=== PATIENT | female | born 1955 | race Caucasian/White ===

== ENCOUNTER 2016-12-05 11:57 | Inpatient (IN) | payer MEDICARE, OTHER ==
[~2016-12-05] VITALS: Ht 154.9 cm; Wt 66.5 kg
[2016-12-05] MEDS: INSULIN ASPART [NOVOLOG] 3 ML PEN SC SCH (00:15)
[2016-12-05] MEDS ORDERED: ASPIRIN 325 MG TAB PO STA (12:42)
[2016-12-05] MEDS ORDERED: ONDANSETRON 4 MG INJ IV STA (12:42)
[2016-12-05] MEDS ORDERED: NITROGLYCERIN 2% 1 GM OINT PKT TD STA (12:42)
[2016-12-05] MEDS ORDERED: GLIP5TAB13 PO (12:54)
[2016-12-05] MEDS ORDERED: CARV25TA79 PO (12:54)
[2016-12-05] MEDS ORDERED: DIGO125T PO (12:54)
[2016-12-05] MEDS ORDERED: SPIR25TA PO (12:55)
[2016-12-05] MEDS ORDERED: LISI40TA9 PO (12:55)
[2016-12-05] MEDS ORDERED: METF-382 PO (12:55)
[2016-12-05] MEDS ORDERED: PALI1.5T PO (12:56)
[2016-12-05] MEDS ORDERED: NITROGLYCERIN (SL) 0.4 MG TAB SL PRN ×2 (13:00→18:30)
--- NOTE | 2016-12-05 13:09 | RADRPT ---
PROCEDURE: XR Chest. CLINICAL INDICATION: Chest pain TECHNIQUE: Single frontal view of the chest was obtained COMPARISON: None FINDINGS: The heart is enlarged. The thoracic aorta is calcified. There is a mild patchy right perihilar and right lower lobe infiltrate. There are mild left lower lobe linear atelectatic changes. There is no pleural effusion or pneumothorax. RPTAT: AA IMPRESSION: Mild patchy right perihilar and right lower lobe infiltrate. Mild cardiomegaly. Calcified aorta consistent with atherosclerotic disease. .Gil Ansari MD, MD Date Time Electronically viewed and signed by .Gil Ansari MD, on 12/05/2016 13:09 .S/
[2016-12-05] MEDS: morphine 4 MG/ML VIAL IV STA ×2 (13:10→13:16)
[2016-12-05 13:20] LABS: ADD SCAN DIFF NO
[2016-12-05 13:24] LABS: BASOPHILS % 0.1 % (0.0-2.0); EOSINOPHILS % 0.3 % (0.0-7.0); HEMATOCRIT 37.4 % (37.0-47.0); HEMOGLOBIN 12.2 g/dl (12.0-16.0); LYMPHOCYTES # 1.1 10^3/ul (0.8-2.9); LYMPHOCYTES % 16.2 % (15.0-51.0); MEAN CORPUSCULAR HEMOGLOBIN 30.3 pg (29.0-33.0); MEAN CORPUSCULAR HGB CONC 32.6 g/dl (32.0-37.0); MEAN CORPUSCULAR VOLUME 92.8 fl (82.0-101.0); MEAN PLATELET VOLUME 9.1 fl (7.4-10.4); MONOCYTE # 0.6 10^3/ul (0.3-0.9); MONOCYTES % 8.3 % (0.0-11.0); NEUTROPHIL # 5.2 10^3/ul (1.6-7.5); NEUTROPHILS % 74.8 % (39.0-77.0); PLATELET COUNT 371 10^3/UL (140-415); RED BLOOD COUNT 4.03 10^6/ul (4.20-5.40); RED CELL DISTRIBUTION WIDTH 14.4 % (11.5-14.5); WHITE BLOOD COUNT 6.9 10^3/ul (4.8-10.8)
[2016-12-05] MEDS ORDERED: IPRATROPIUM (NEB) 0.5 MG/2.5 ML AMP NEB STA (13:31)
[2016-12-05] MEDS ORDERED: ALBUTEROL 0.5% (NEB) 2.5 MG/0.5 ML AMP NEB STA (13:31)
[2016-12-05 13:35] LABS: CHLORIDE 106 mmol/L (97-110)
[2016-12-05 13:36] LABS: INR 1.06; POTASSIUM 4.1 mmol/L (3.5-5.1); PROTIME 13.8 Sec (12.2-14.2); PT RATIO 1.1; SODIUM 145 mmol/L (135-144)
[2016-12-05 13:37] LABS: PARTIAL THROMBOPLASTIN TIME 25.4 Sec (25.0-35.0)
[2016-12-05 13:38] LABS: CREATININE 0.56 mg/dl (0.44-1.00)
[2016-12-05 13:39] LABS: ANION GAP 19 (8-16); BLOOD UREA NITROGEN 13 mg/dl (7-20); CALCIUM 8.7 mg/dl (8.4-10.2); CARBON DIOXIDE 24 mmol/L (21-31); GLUCOSE 128 mg/dl (70-220)
[2016-12-05 13:51] LABS: TROPONIN-I < 0.012 ng/ml (0.00-0.12)
[2016-12-05] MEDS ORDERED: CEFTRIAXONE 1 GM/50 ML (PMX) 50 ML IVPB STA (15:19)
[2016-12-05] MEDS ORDERED: AZITHROMYCIN 500MG/NS (PMX) 250 ML IV STA (15:19)
[2016-12-05] MEDS ORDERED: SOD CHLORIDE 0.9% 1,000 ML IV SCH (17:24)
--- NOTE | 2016-12-05 17:24 | ERA ---
ER Documentation Chief Complaint Date/Time DATE: 12/05/16 TIME: 17:19 Chief Complaint BROUGHT IN VIA EMS DUE TO SOB DUE TO SMOKING 2 PACKS A DAY HPI This is a 61-year-old female brought in for shortness of breath. She has emphysema and is continuing to smoke. The patient is an extremely difficult historian and will not elaborate on any questions that I ask her she just keeps saying she is short of breath. I was able to elicit that she is having some chest pain today. She says she has "sometimes cough". She will not answer me if I asked her if she has a fever or if she is currently having chest pain or shortness of breath. ROS All systems reviewed and are negative except as per history of present illness. Medications Home Meds Reported Medications Paliperidone (Invega) 1.5 Mg Tab.er.24, 3 MG PO DAILY, TAB 12/05/16 Lisinopril* (Lisinopril*) 40 Mg Tablet, 40 MG PO DAILY, #30 TAB 12/05/16 Metformin Hcl* (Metformin Hcl*) 500 Mg Tablet, 500 MG PO WITH MEALS, #30 TAB 12/05/16 Spironolactone* (Aldactone*) 25 Mg Tablet, 25 MG PO DAILY, #30 TAB 12/05/16 Digoxin* (Digitek*) 125 Mcg Tablet, 0.125 MG PO DAILY, TAB 12/05/16 Glipizide* (Glipizide*) 5 Mg Tablet, 5 MG PO AC BREAKFAST, TAB 12/05/16 Carvedilol* (Carvedilol*) 25 Mg Tablet, 25 MG PO BID, #60 TAB 12/05/16 Allergies Allergies: Coded Allergies: No Known Drug Allergies (Verified Allergy, Unknown, 12/05/16) PMhx/Soc History of Surgery: Yes (thyroid surgery) Anesthesia Reaction: Yes Hx Neurological Disorder: No Hx Respiratory Disorders: No Hx Cardiac Disorders: Yes (congestive heart failure) Hx Psychiatric Problems: No Hx Miscellaneous Medical Probl: Yes (has diabetes and hypertension) Hx Alcohol Use: No Hx Substance Use: No Hx Tobacco Use: Yes Smoking Status: Heavy tobacco smoker FmHx Unable to obtain because the patient will not answer me Physical Exam Vitals Vital Signs Date Time Temp Pulse Resp B/P Pulse Ox O2 Delivery O2 Flow Rate FiO2 12/05/16 13:59 98.2 86 20 124/76 97 2.0 12/05/16 13:58 87 22 97 Nasal Cannula 2.0 12/05/16 12:58 Nasal Cannula 2 12/05/16 11:59 98.2 95 20 122/80 95 Physical Exam Const: Well-developed, well-nourished Head: Atraumatic, normocephalic Eyes: Normal Conjunctiva, PERRLA, EOMI, normal sclera, no nystagmus ENT: Normal External Ears, Nose and Mouth, moist mucus membranes. Neck: Full range of motion. No meningismus, no lymphadenopathy. Resp: Slight increased work of breathing with distant breath sounds consistent with emphysema. No respiratory distress. Cardio: Regular rate and rhythm, no murmurs, S1 S2 present Abd: Soft, non tender x 4, non distended. Normal bowel sounds, no guarding or rebound, no pulsitile abdominal masses or bruits Skin: No petechiae or rashes, no ecchymosis , no maculopapular rash Back: No midline or flank tenderness Ext: No cyanosis, or edema, FROM x 4, normal inspection, neurovascularly intact x 4 Neur: Awake and alert, STR 5/5 x 4, sensation intact x 4, no focal findings, cerebellum intact Psych: Flat affect, not cooperative with questioning Result Diagram: 12/05/16 1305 12/05/16 1305 Results 24 hrs Laboratory Tests Test 12/05/16 13:05 Activated Partial Thromboplast Time 25.4Sec Anion Gap 19 Basophils # 0.010^3/ul Basophils % 0.1% Blood Urea Nitrogen 13mg/dl Calcium Level 8.7mg/dl Carbon Dioxide Level 24mmol/L Chloride Level 106mmol/L Creatinine 0.56mg/dl Eosinophils # 0.010^3/ul Eosinophils % 0.3% Glucose Level 128mg/dl Hematocrit 37.4% Hemoglobin 12.2g/dl INR International Normalized Ratio 1.06 Lymphocytes # 1.110^3/ul Lymphocytes % 16.2% Mean Corpuscular Hemoglobin 30.3pg Mean Corpuscular Hemoglobin Concent 32.6g/dl Mean Corpuscular Volume 92.8fl Mean Platelet Volume 9.1fl Monocytes # 0.610^3/ul Monocytes % 8.3% Neutrophils # 5.210^3/ul Neutrophils % 74.8% Nucleated Red Blood Cells # 0.010^3/ul Nucleated Red Blood Cells % 0.0/100WBC Platelet Count 08320^3/UL Potassium Level 4.1mmol/L Prothrombin Time 13.8Sec Prothrombin Time Ratio 1.1 Red Blood Count 4.0310^6/ul Red Cell Distribution Width 14.4% Sodium Level 145mmol/L Troponin I < 0.012ng/ml White Blood Count 6.910^3/ul Current Medications Medications (Trade) Dose Ordered Sig/Osvaldo Route PRN Reason Start Time Stop Time Status Last Admin Dose Admin Aspirin (Aspirin) 325 mg ONCE STAT PO 12/05/16 12:42 12/05/16 12:44 DC 12/05/16 13:11 Nitroglycerin (Nitroglycerin 2% Oint) 1 inch ONCE STAT TD 12/05/16 12:42 12/05/16 12:45 DC 12/05/16 13:10 Nitroglycerin (Nitroglycerin (Sl Tab) 0.4 Mg) 1 tab Q5M UP TO 3 DOSES PRN SL CHEST PAIN 12/05/16 13:00 12/05/16 13:09 Morphine Sulfate (morphine) 4 mg ONCE STAT IV 12/05/16 12:42 12/05/16 12:45 DC Ondansetron HCl (Zofran Inj) 4 mg ONCE STAT IV 12/05/16 12:42 12/05/16 12:45 DC 12/05/16 13:09 Albuterol (Proventil 0.5% (Neb)) 10 mg ONCE STAT NEB 12/05/16 13:31 12/05/16 13:32 DC 12/05/16 13:57 Ipratropium [place] 0.5 mg 0.5 mg ONCE STAT NEB 12/05/16 13:31 12/05/16 13:32 DC 12/05/16 13:56 Azithromycin 250 ml @ 250 mls/hr ONCE STAT IV 12/05/16 15:19 12/05/16 16:18 DC 12/05/16 15:36 Ceftriaxone Sodium (Rocephin) 50 ml @ 100 mls/hr ONCE STAT IVPB 12/05/16 15:19 12/05/16 15:48 DC 12/05/16 15:19 Procedures/MDM PROCEDURE: XR Chest. CLINICAL INDICATION: Chest pain TECHNIQUE: Single frontal view of the chest was obtained COMPARISON: None FINDINGS: The heart is enlarged. The thoracic aorta is calcified. There is a mild patchy right perihilar and right lower lobe infiltrate. There are mild left lower lobe linear atelectatic changes. There is no pleural effusion or pneumothorax. RPTAT: AA IMPRESSION: Mild patchy right perihilar and right lower lobe infiltrate. Mild cardiomegaly. Calcified aorta consistent with atherosclerotic disease. .Gil Ansari MD, MD Date Time Electronically viewed and signed by .Gil Ansari MD, MD on 12/05/2016 13: 09 .S/ CC: GAGAN NEFF DO EKG: Rate/Rhythm: Normal sinus rhythm normal intervals QRS, ST, QT: NORMAL ND, QRS, prolonged QT] Impression: Abnormal EKG] Patient's cardiac enzyme is negative however there are some diffuse patchy infiltrates. The patient will be given some antibiotics and blood cultures admitted to the hospital for cardiac workup and antibiotic therapy. Departure Diagnosis: Primary Impression: Pneumonia Qualified Code: J18.9 - Pneumonia of right lower lobe due to infectious organism Additional Impressions: Chest pain Qualified Code: R07.9 - Chest pain, unspecified type Dyspnea Qualified Code: R06.00 - Dyspnea, unspecified type Condition: Stable GAGAN NEFF DO Dec 05, 2016 17:24
[2016-12-05] MEDS ORDERED: ONDANSETRON 4 MG INJ IV PRN ×2 (17:30→18:30)
[2016-12-05] MEDS ORDERED: ACETAMINOPHEN 325 MG TAB PO PRN ×2 (17:30→18:30)
[2016-12-05 17:59] VITALS: TEMP 98.2
--- NOTE | 2016-12-05 18:25 | CONS ---
Date/Time of Note Date/Time of Note DATE: 12/05/16 TIME: 18:24 Assessment/Plan Assessment/Plan Chief Complaint/Hosp Course SOB: likely COPD exacerbation in pt with active smoking. Pt denies chest pain. Cardiac myxoma: pt has refused surgery multiple times in the past and still is not interested. She also does not want anticoagulation for stroke prevention. Severe COPD -management of COPD per primary team/pulm -can check echo -otherwise will see as needed over the weekend as no active cardiac issues Problems: Consultation Date/Type/Reason Admit Date/Time Date of Consultation: Dec 05, 2016 Type of Consultation: Cardiology Reason for Consultation Chest pain Referring Provider: ZAIRA SOTELO MD, [facility] Hx of Present Illness 61 yo F known to me from an admission in [facility] with a h/o cardiac myxoma (refused surgery multiple times), severe COPD, active tobacco use, who presented secondary to SOB. The patient notes she had SOB for several hours today but no chest pain. Currently she is back to her baseline. per HPI Social History Smoking Status: Heavy tobacco smoker Exam/Review of Systems Vital Signs Vitals Vital Signs Date Time Temp Pulse Resp B/P Pulse Ox O2 Delivery O2 Flow Rate FiO2 12/05/16 13:59 98.2 86 20 124/76 97 2.0 12/05/16 13:58 Nasal Cannula Exam Constitutional: alert, oriented Psych: no complaints Head: normocephalic Eyes: nl conjunctiva ENMT: nl external ears & nose Neck: No jvd Respiratory: diminished breath sounds, No clear to auscultation, No wheezing Cardiovascular: regular rate and rhythm, systolic murmur (2/6), No edema Gastrointestinal: non-tender, soft Neurological: nl mental status, nl speech Skin: No rash or lesions Results Result Diagram: 12/05/16 1305 12/05/16 1305 Results 24 hrs Laboratory Tests Test 12/05/16 13:05 Activated Partial Thromboplast Time 25.4 Anion Gap 19 H Basophils # 0.0 Basophils % 0.1 Blood Urea Nitrogen 13 Calcium Level 8.7 Carbon Dioxide Level 24 Chloride Level 106 Creatinine 0.56 Eosinophils # 0.0 Eosinophils % 0.3 Glucose Level 128 Hematocrit 37.4 Hemoglobin 12.2 INR International Normalized Ratio 1.06 Lymphocytes # 1.1 Lymphocytes % 16.2 Mean Corpuscular Hemoglobin 30.3 Mean Corpuscular Hemoglobin Concent 32.6 Mean Corpuscular Volume 92.8 Mean Platelet Volume 9.1 Monocytes # 0.6 Monocytes % 8.3 Neutrophils # 5.2 Neutrophils % 74.8 Nucleated Red Blood Cells # 0.0 Nucleated Red Blood Cells % 0.0 Platelet Count 371 Potassium Level 4.1 Prothrombin Time 13.8 Prothrombin Time Ratio 1.1 Red Blood Count 4.03 L Red Cell Distribution Width 14.4 Sodium Level 145 H Troponin I < 0.012 White Blood Count 6.9 # Medications Medications Current Medications Sodium Chloride (NS) 1,000 ml @ 80 mls/hr [id number] IV Last administered on 12/05t 17:45; Admin Dose 80 MLS/HR; Start 12/05/16 at 17:24; Stop 12/06/16 at 05: 53 BRITTANI CAUSEY Dec 05, 2016 18:25
[2016-12-05] MEDS ORDERED: MAGNESIUM HYDROXIDE 30ML CUP PO PRN (18:30)
[2016-12-05] MEDS ORDERED: ALBUTEROL/IPRATROPIUM (NEB) 3 ML AMP HHN PRN (18:30)
[2016-12-05] MEDS ORDERED: NACL 0.9% 3 ML SYG IV SCH (18:30)
[2016-12-05] MEDS ORDERED: BISACODYL (EC) 5 MG TAB PO PRN (18:30)
[2016-12-05] MEDS ORDERED: HYDROCODONE/APAP (5/325) TAB PO PRN (18:30)
[2016-12-05] MEDS ORDERED: hydrALAzine 20 MG INJ IV PRN (18:30)
[2016-12-05] MEDS ORDERED: morphine 2 MG INJ IV PRN (18:30)
[2016-12-05] MEDS ORDERED: GLUCOSE GEL 15 GRAM TUBE PO PRN ×2 (19:00)
[2016-12-05] MEDS ORDERED: GLUCAGON 1 MG INJ IM PRN (19:00)
[2016-12-05] MEDS ORDERED: GLUCOSE GEL 15 GRAM TUBE BUCCAL PRN (19:00)
[2016-12-05] MEDS ORDERED: DEXTROSE 50% 50 ML SYRINGE IV PRN ×2 (19:00)
[2016-12-05 19:12] LABS: CREATINE KINASE 26 IU/L (23-200)
[2016-12-05 19:22] LABS: CK-MB 0.56 ng/ml (0.0-2.4)
[2016-12-05 19:29] LABS: TROPONIN-I < 0.012 ng/ml (0.00-0.12)
[2016-12-05] MEDS: ALBUTEROL/IPRATROPIUM (NEB) 3 ML AMP HHN SCH (20:00)
--- NOTE | 2016-12-05 20:27 | HP ---
DATE OF ADMISSION: 12/05/2016 REASON FOR ADMISSION: Shortness of breath. HISTORY OF PRESENT ILLNESS: This is a 61-year-old lady, very poor historian, unable to give me sign ificant history. Has a history of tobacco use, smokes 2 packs per day. Comes in with a several-day history of chest pain, increasing cough, congestion, no fever, but moderate respiratory distress, r equiring some accessory muscle use. No hemoptysis or hematemesis. No weight loss. She has an exte nsive tobacco history, 2 packs per day x20 plus years. 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 MEDICATIONS: Include: 1. Lisinopril 40 mg daily. 2. Metformin 500 mg t.i.d. 3. Spironolactone 25 mg. 4. Digoxin 0.125 mg p.o. daily. 5. Glipizide 5 mg p.o. daily. 6. Carvedilol 25 mg b.i.d. Per cardiology, the patient has been seen both at [facility] and [facility]. SOCIAL HISTORY: Tobacco history of 2 packs per day. No alcohol, no history of drug use. FAMILY HISTORY: Noncontributory. SYSTEMS REVIEW: A 12-point review of systems was negative other than that mentioned above. PHYSICAL EXAMINATION: GENERAL: Moderately obese lady in mild respiratory distress. No accessory muscle use. VITAL SIGNS: Currently afebrile, temperature 98, pulse is 86, blood pressure 124/76, O2 saturation 96% on 2L nasal cannula. NECK: Supple. No JVD or lymphadenopathy. CARDIAC: S1, S2, no added sounds or murmurs. CHEST: Diminished air entry bilaterally. ABDOMEN: Soft, nontender. No guarding, no rebound, obese. EXTREMITIES: No cyanosis, clubbing, 1+ edema. NEUROLOGIC: Generalized weakness. LABORATORY DATA: White count 6.9, hemoglobin 12.2, platelets of 371. BUN 13, creatinine 0.56. INR 1.06. DIAGNOSTIC DATA: Chest x-ray shows bilateral patchy infiltrates. ECG showed no acute ischemic hdez ges. IMPRESSION AND PLAN: A 61-year-old lady with a history of significant tobacco use, atrial myxoma, s omewhat noncompliant with therapy; who presents with likely chronic obstructive pulmonary disease ex acerbation, possible community-acquired pneumonia. The patient will require: 1. Steroids. 2. Antibiotics. 3. Bronchodilators. 4. Cardiology evaluation with echocardiogram. 5. DVT and GI prophylaxis. 6. Advice on smoking cessation. 7. 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 Dictated By: ZAIRA BARAHONA/LISA Conf#: [id number] DID#: [id number]
[2016-12-05] MEDS: INSULIN GLARGINE [LANtus] 3 ML PEN SC SCH (22:45)
[2016-12-06] VITALS (12 sets, daily range): BP systolic 109–154; BP diastolic 56–84; PULSE 65–77; RESP 18–22; Ht 154.9 cm; Wt 66.5 kg
[2016-12-06] MEDS: FAMOTIDINE 20 MG TAB PO SCH ×3 (01:24→20:35)
[2016-12-06] MEDS: METHYLPREDNISOLONE 125 MG INJ IV SCH ×4 (01:26→22:30)
[2016-12-06 02:10] LABS: CREATINE KINASE 20 IU/L (23-200)
[2016-12-06 02:20] LABS: CK-MB 0.56 ng/ml (0.0-2.4)
[2016-12-06 02:48] LABS: TROPONIN-I < 0.012 ng/ml (0.00-0.12)
[2016-12-06 05:50] LABS: ADD SCAN DIFF NO
[2016-12-06 05:59] LABS: EOSINOPHILS % 0.2 % (0.0-7.0); HEMATOCRIT 34.2 % (37.0-47.0); HEMOGLOBIN 11.2 g/dl (12.0-16.0); LYMPHOCYTES # 1.1 10^3/ul (0.8-2.9); LYMPHOCYTES % 16.6 % (15.0-51.0); MEAN CORPUSCULAR HEMOGLOBIN 30.2 pg (29.0-33.0); MEAN CORPUSCULAR HGB CONC 32.7 g/dl (32.0-37.0); MEAN CORPUSCULAR VOLUME 92.2 fl (82.0-101.0); MEAN PLATELET VOLUME 9.2 fl (7.4-10.4); MONOCYTE # 0.2 10^3/ul (0.3-0.9); MONOCYTES % 2.6 % (0.0-11.0); NEUTROPHIL # 5.3 10^3/ul (1.6-7.5); NEUTROPHILS % 80.1 % (39.0-77.0); PLATELET COUNT 361 10^3/UL (140-415); RED BLOOD COUNT 3.71 10^6/ul (4.20-5.40); RED CELL DISTRIBUTION WIDTH 14.3 % (11.5-14.5); WHITE BLOOD COUNT 6.6 10^3/ul (4.8-10.8)
[2016-12-06 06:10] LABS: CHOL/HDL RATIO 5.6 RATIO
[2016-12-06] MEDS ORDERED: glipiZIDE 5 MG TAB PO SCH (07:00)
[2016-12-06 07:15] LABS: ALBUMIN 3.3 g/dl (3.3-4.9)
[2016-12-06 07:16] LABS: POTASSIUM 4.8 mmol/L (3.5-5.1)
[2016-12-06 07:18] LABS: ALBUMIN/GLOBULIN RATIO 0.86; BILIRUBIN,INDIRECT 0.2 mg/dl (0-1.1); BILIRUBIN,TOTAL 0.2 mg/dl (0.2-1.3); CREATININE 0.58 mg/dl (0.44-1.00); TOTAL PROTEIN 7.1 g/dl (6.1-8.1)
[2016-12-06 07:19] LABS: CALCIUM 8.5 mg/dl (8.4-10.2); MAGNESIUM 2.1 mg/dl (1.7-2.5)
[2016-12-06] MEDS: ALBUTEROL/IPRATROPIUM (NEB) 3 ML AMP HHN SCH ×3 (08:00→21:10)
[2016-12-06] MEDS: metFORMIN 500 MG TAB PO SCH ×3 (08:34→17:39)
[2016-12-06] MEDS: ASPIRIN 81 MG TAB PO SCH (08:34)
[2016-12-06] MEDS: SPIRONOLACTONE 25 MG TAB PO SCH (08:34)
[2016-12-06] MEDS: LISINOPRIL 20 MG TAB PO SCH (08:35)
[2016-12-06] MEDS: ENOXAPARIN 40 MG/0.4 ML SYG SC SCH (08:38)
[2016-12-06] MEDS: INSULIN ASPART [NOVOLOG] 3 ML PEN SC SCH ×7 (08:52→20:38)
[2016-12-06] MEDS ORDERED: PALIPERIDONE 3 MG PO SCH (09:00)
--- NOTE | 2016-12-06 10:18 | RADRPT ---
Echocardiogram Report Patient Name: MINA CESPEDES Gender: Female Date: 1955 Study Date: 06-Dec-2016 Vehicle Check In Clerk: [facility] Location: 512 Ref. Physician: JUAN JEFFERY Quality: Good Procedures: Transthoracic echocardiogram with complete 2D, M-Mode, and doppler examination. Indications: Chest Pain. 2D/M Mode Doppler Measurement Value Normal Ranges Measurement Value Normal Ranges LVIDd 2D 5.8 3.5 - 5.6 cm AV Peak Romeo 1.3 m/sec LVIDs 2D 4.2 2.1 - 4.1 cm AV Peak PG 7.0 mmHg FS 2D 27.3 % LVOT Peak Romeo 0.7 m/sec LVPWd 2D 1.3 0.6 - 1.1 cm LVOT Peak PG 2.0 mmHg IVSd 2D 1.3 0.6 - 1.1 cm MV E Peak Romeo 1.9 m/sec IVS/LVPW 2D 1.0 MV A Peak Romeo 0.9 m/sec AoR Diam 2D 2.5 2.0 - 3.7 cm MV E/A 2.1 LA/Ao 2D 2 0 - 1 MV Decel Time 208 msec EDV 2D 197.0 cm3 MV E/A 2.1 ESV 2D 75.7 cm3 MR Peak PG 118.0 mmHg LA Dimen 2D 4.9 2.3 - 4.0 cm MR Peak Romeo 5.4 m/sec TR Peak Romeo 2.3 m/sec TR Peak PG 22.0 mmHg Findings Left Ventricle: Normal left ventricular systolic function. Normal left ventricular cavity size. Mild concentric left ventricular hypertrophy. Ejection fraction is visually estimated at 55 %. Tissue Doppler/Mitral Doppler indices are consistent with impaired relaxation (Stage I diastolic dysfunction). Right Ventricle: Normal right ventricular size. Normal right ventricular systolic function. Left Atrium: There is moderate enlargement of left atrium. Large left atrial myxoma measuring up to 5 cm x 4 cm. The myxoma prolapses across the mitral anulus in diastole and partially obstructs outflow causing a peak gradient up to 13 mmHg. Right Atrium: The right atrium is normal in size. Mitral Valve: Mild to moderate mitral valve regurgitation. Aortic Valve: Trileaflet aortic valve. Trace aortic valve regurgitation. Tricuspid Valve: Tricuspid valve not well visualized. Estimated peak PA systolic pressure 32 mmHg. There is mild tricuspid regurgitation. Pericardium: Normal pericardium with no significant pericardial effusion. Aorta: Normal aortic root. IVC: Dilated IVC with respiratory collapse consistent with elevated right atrial pressure. Conclusions 1.Normal left ventricular systolic function. Normal left ventricular cavity size. Mild concentric left ventricular hypertrophy. Ejection fraction is visually estimated at 55 %. Tissue Doppler/Mitral Doppler indices are consistent with impaired relaxation (Stage I diastolic dysfunction). 2.Large left atrial myxoma measuring up to 5 cm x 4 cm (known history of this). The myxoma prolapses across the mitral anulus in diastole and partially obstructs outflow causing a peak gradient up to 13 mmHg. 3.Mild to moderate mitral valve regurgitation. 4.Estimated peak PA systolic pressure 32 mmHg based on RA pressure of 8 mmHg. Electronically Signed By: Stone Calixto 06-Dec-2016 10:17: Patient Name: MINA CESPEDES Study Date: 06-Dec-2016 [id number]
--- NOTE | 2016-12-06 11:43 | PN ---
Date/Time of Note Date/Time of Note DATE: 12/06/16 TIME: 11:40 Assessment/Plan VTE Prophylaxis VTE Prophylaxis Intervention: LMWH Lines/Catheters IV Catheter Type (from Nrs): Saline Lock Assessment/Plan Assessment/Plan 1. acute chronic obstructive pulmonary disease exacerbation 2. Right lung infiltrates due to Community acquired PNA Plan : IV abx, IV steroids transfer to [facility]/surge floor Cariology following Subjective 24 Hr Interval Summary Free Text/Dictation pt doing ok, BP stable, afebrile, CXR showed acute infiltrates Exam/Review of Systems Vital Signs Vitals Vital Signs Date Time Temp Pulse Resp B/P Pulse Ox O2 Delivery O2 Flow Rate FiO2 12/06/16 11:37 97.4 69 20 113/57 97 12/06/16 06:42 Nasal Cannula 3.0 Exam NECK: Supple. No JVD or lymphadenopathy. CARDIAC: S1, S2, no added sounds or murmurs. CHEST: Diminished air entry bilaterally. ABDOMEN: Soft, nontender. No guarding, no rebound, obese. EXTREMITIES: No cyanosis, clubbing, 1+ edema. NEUROLOGIC: Generalized weakness. Results Result Diagram: 12/06/16 0525 12/06/16 0525 Results 24 hrs Laboratory Tests Test 12/05/16 13:05 12/05/16 18:20 12/06/16 00:57 12/06/16 01:36 Activated Partial Thromboplast Time 25.4 Anion Gap 19 H Basophils # 0.0 Basophils % 0.1 Blood Urea Nitrogen 13 Calcium Level 8.7 Carbon Dioxide Level 24 Chloride Level 106 Creatinine 0.56 Eosinophils # 0.0 Eosinophils % 0.3 Glucose Level 128 Hematocrit 37.4 Hemoglobin 12.2 INR International Normalized Ratio 1.06 Lymphocytes # 1.1 Lymphocytes % 16.2 Mean Corpuscular Hemoglobin 30.3 Mean Corpuscular Hemoglobin Concent 32.6 Mean Corpuscular Volume 92.8 Mean Platelet Volume 9.1 Monocytes # 0.6 Monocytes % 8.3 Neutrophils # 5.2 Neutrophils % 74.8 Nucleated Red Blood Cells # 0.0 Nucleated Red Blood Cells % 0.0 Platelet Count 371 Potassium Level 4.1 Prothrombin Time 13.8 Prothrombin Time Ratio 1.1 Red Blood Count 4.03 L Red Cell Distribution Width 14.4 Sodium Level 145 H Troponin I < 0.012 < 0.012 < 0.012 White Blood Count 6.9 # Creatine Kinase 26 20 L Creatine Kinase Index 2.2 2.8 Creatinine Kinase MB (Mass) 0.56 0.56 Free Thyroxine 1.58 Hemoglobin A1c 8.1 H Thyroid Stimulating Hormone (TSH) 1.330 Bedside Glucose 109 Test 12/06/16 05:00 12/06/16 05:25 12/06/16 07:49 Cholesterol Level 153 Cholesterol/HDL Ratio 5.6 HDL Cholesterol 27 L LDL Cholesterol, Calculated 93 Triglycerides Level 165 H Alanine Aminotransferase (ALT/SGPT) 26 Albumin 3.3 Albumin/Globulin Ratio 0.86 Alkaline Phosphatase 93 Anion Gap 18 H Aspartate Amino Transf (AST/SGOT) 24 Basophils # 0.0 Basophils % 0.0 Blood Urea Nitrogen 16 Calcium Level 8.5 Carbon Dioxide Level 22 Chloride Level 107 Creatinine 0.58 Digoxin Level < 0.4 L Direct Bilirubin 0.00 Eosinophils # 0.0 Eosinophils % 0.2 Globulin 3.80 H Glucose Level 161 Hematocrit 34.2 L Hemoglobin 11.2 L Indirect Bilirubin 0.2 Lymphocytes # 1.1 Lymphocytes % 16.6 Magnesium Level 2.1 Mean Corpuscular Hemoglobin 30.2 Mean Corpuscular Hemoglobin Concent 32.7 Mean Corpuscular Volume 92.2 Mean Platelet Volume 9.2 Monocytes # 0.2 L Monocytes % 2.6 Neutrophils # 5.3 Neutrophils % 80.1 H Nucleated Red Blood Cells # 0.0 Nucleated Red Blood Cells % 0.0 Platelet Count 361 Potassium Level 4.8 Red Blood Count 3.71 L Red Cell Distribution Width 14.3 Sodium Level 142 Total Bilirubin 0.2 Total Protein 7.1 White Blood Count 6.6 Bedside Glucose 182 Medications Medications Current Medications Lorazepam (Ativan) 0.5 mg Q6H PRN IV ANXIETY; Start 12/05/16 at 18:30 Ondansetron HCl (Zofran Inj) 4 mg Q6H PRN IV NAUSEA AND/OR VOMITING; Start 07/14 at 18:30 Aspirin (Aspirin) 81 mg DAILY PO Last administered on 12/06/16 08:34; Admin Dose 81 MG; Start 12/06/16 at 09:00 Methylprednisolone Sodium Succinate (Solu-Medrol) 60 mg Q6 IV Last administered on 12/06/16 08:33; Admin Dose 60 MG; Start 12/06/16 at 00:00 Nitroglycerin (Nitroglycerin (Sl Tab) 0.4 Mg) 1 tab Q5M PRN SL CHEST PAIN; Start 12/05/16 at 18:30 Acetaminophen (Tylenol Tab) 650 mg Q6H PRN PO PAIN LEVEL 1-3 OR FEVER; Start at 18:30 Acetaminophen/ Hydrocodone Bitart ([place] (5/325)) 1 tab Q6H PRN PO PAIN LEVEL 4 -6; Start 12/05/16 at 18:30 Morphine Sulfate (morphine) 2 mg Q4H PRN IV PAIN LEVEL 7-10; Start 12/05/16 at 18:30 Magnesium Hydroxide (Milk Of Mag) 30 ml DAILY PRN PO CONSTIPATION; Start at 18:30 Bisacodyl (Dulcolax) 5 mg DAILY PRN PO CONSTIPATION; Start 12/05/16 at 18:30 Famotidine (Pepcid) 20 mg Q12 PO Last administered on 12/06/16 08:34; Admin Dose 20 MG; Start 12/05/16 at 21:00 Enoxaparin Sodium 40 mg 40 mg DAILY SC Last administered on 12/06/16 08:38; Admin Dose 40 MG; Start 12/06/16 at 09:00 Ceftriaxone Sodium 50 ml @ 100 mls/hr Q24H IVPB ; Start 12/06/16 at 15:00 Azithromycin (Zithromax 500mg/ NS (Pmx)) 250 ml @ 250 mls/hr Q24H IVPB ; Start 12/06/16 at 16:00 Hydralazine HCl (Apresoline) 10 mg Q6H PRN IV SBP>160; Start 12/05/16 at 18:30 Carvedilol (Coreg) 25 mg BID PO Last administered on 12/06/16 08:36; Admin Dose 25 MG; Start 12/05/16 at 21:00 Digoxin (Digoxin) 0.125 mg DAILY@13 PO ; Start 12/06/16 at 13:00 Lisinopril (Zestril) 40 mg DAILY PO Last administered on 12/06/16 08:35; Admin Dose 40 MG; Start 12/06/16 at 09:00 Spironolactone (Aldactone) 25 mg DAILY PO Last administered on 12/06/16 08:34 ; Admin Dose 25 MG; Start 12/06/16 at 09:00 Miscellaneous Information 3 mg DAILY PO ; Start 12/06/16 at 09:00; Status UNV Insulin Glargine (Lantus) 8 unit DAILY@20 SC ; Start 12/05/16 at 22:45 Miscellaneous Information 1 ea NOTE XX ; Start 12/05/16 at 19:00 Glucose (Glutose) 15 gm Q15M PRN PO DECREASED GLUCOSE; Start 12/05/16 at 19:00 Glucose (Glutose) 22.5 gm Q15M PRN PO DECREASED GLUCOSE; Start 12/05/16 at 19: 00 Dextrose (D50w Syringe) 25 ml Q15M PRN IV DECREASED GLUCOSE; Start 12/05/16 at 19:00 Dextrose (D50w Syringe) 50 ml Q15M PRN IV DECREASED GLUCOSE; Start 12/05/16 at 19:00 Glucagon (Glucagen) 1 mg Q15M PRN IM DECREASED GLUCOSE; Start 12/05/16 at 19:00 Glucose (Glutose) 15 gm Q15M PRN BUCCAL DECREASED GLUCOSE; Start 12/05/16 at 19 :00 ADITYA JAMA MD Dec 06, 2016 11:43
[2016-12-06] MEDS: DIGOXIN 0.125 MG TAB PO SCH (13:00)
[2016-12-06] MEDS: LORAZEPAM 2 MG INJ IV PRN ×2 (14:59→15:03)
[2016-12-06] MEDS: CEFTRIAXONE 1 GM/50 ML (PMX) 50 ML IVPB SCH (15:13)
[2016-12-06] MEDS: AZITHROMYCIN 500MG/NS (PMX) 250 ML IVPB SCH (16:40)
[2016-12-06] MEDS: INSULIN GLARGINE [LANtus] 3 ML PEN SC SCH (20:45)
[2016-12-07] MEDS: METHYLPREDNISOLONE 125 MG INJ IV SCH ×2 (05:46→13:54)
[2016-12-07 07:29] VITALS: BP 139/66; RESP 18
[2016-12-07 07:55] LABS: ADD UMIC NO; URINE BILIRUBIN (Dip) NEGATIVE (NEGATIVE); URINE BLOOD (Dip) NEGATIVE (NEGATIVE); URINE COLOR LT. YELLOW (YELLOW); URINE GLUCOSE (Dip) NEGATIVE (NEGATIVE); URINE KETONES (Dip) NEGATIVE (NEGATIVE); URINE LEUKOCYTE ESTERASE (Dip) NEGATIVE (NEGATIVE); URINE NITRITE (Dip) NEGATIVE (NEGATIVE); URINE TOTAL PROTEIN (Dip) NEGATIVE (NEGATIVE); URINE UROBILINOGEN (Dip) 0.2 E.U./dL (0.1-1.0)
[2016-12-07] MEDS: ALBUTEROL/IPRATROPIUM (NEB) 3 ML AMP HHN SCH ×3 (08:00→19:25)
[2016-12-07 08:08] LABS: BENZODIAZEPINES Negative (NEGATIVE)
[2016-12-07 08:17] LABS: BARBITURATES Negative (NEGATIVE); CANNABINOIDS Negative (NEGATIVE); COCAINE Negative (NEGATIVE); OPIATES Negative (NEGATIVE)
[2016-12-07] MEDS: LORAZEPAM 2 MG INJ IV PRN ×2 (08:27→15:03)
[2016-12-07] MEDS ORDERED: [UNRECOGNIZED DRUG - REMARK] XX SCH (08:30)
[2016-12-07] MEDS: SPIRONOLACTONE 25 MG TAB PO SCH (08:37)
[2016-12-07] MEDS: ASPIRIN 81 MG TAB PO SCH (08:37)
[2016-12-07] MEDS: metFORMIN 500 MG TAB PO SCH ×3 (08:37→17:24)
[2016-12-07] MEDS: FAMOTIDINE 20 MG TAB PO SCH ×2 (08:38→20:53)
[2016-12-07] MEDS: LISINOPRIL 20 MG TAB PO SCH (08:41)
[2016-12-07] MEDS: ENOXAPARIN 40 MG/0.4 ML SYG SC SCH (09:17)
[2016-12-07] MEDS: INSULIN ASPART [NOVOLOG] 3 ML PEN SC SCH ×7 (09:18→20:54)
[2016-12-07] MEDS: DIGOXIN 0.125 MG TAB PO SCH (12:20)
[2016-12-07] MEDS: CEFTRIAXONE 1 GM/50 ML (PMX) 50 ML IVPB SCH (14:50)
[2016-12-07] MEDS: AZITHROMYCIN 500MG/NS (PMX) 250 ML IVPB SCH (16:28)
[2016-12-07 19:00] VITALS: BP 130/65; RESP 20
[2016-12-07] MEDS: INSULIN GLARGINE [LANtus] 3 ML PEN SC SCH (21:00)
--- NOTE | 2016-12-07 21:50 | PN ---
Date/Time of Note Date/Time of Note DATE: 12/07/16 TIME: 21:49 Assessment/Plan VTE Prophylaxis VTE Prophylaxis Intervention: SCD's Lines/Catheters IV [facility] Type (from [facility] Saline Lock Urinary Cath still in place: No Assessment/Plan Assessment/Plan 1. acute chronic obstructive pulmonary disease exacerbation 2. Right lung infiltrates due to Community acquired PNA Plan : IV abx, IV steroids transferred to med/surge floor Cariology following Subjective 24 Hr Interval Summary Free Text/Dictation transferred to med/surge floor Exam/Review of Systems Vital Signs Vitals Vital Signs Date Time Temp Pulse Resp B/P Pulse Ox O2 Delivery O2 Flow Rate FiO2 12/07/16 19:00 97.6 63 20 130/65 96 12/07/16 08:43 21 12/07/16 01:03 2.0 12/06/16 06:42 Nasal Cannula Intake and Output 12/06/16 12/06/16 12/07/16 15:00 23:00 07:00 Intake Total 720 ml 450 ml Output Total 500 ml Balance 720 ml -50 ml Exam NECK: Supple. No JVD or lymphadenopathy. CARDIAC: S1, S2, no added sounds or murmurs. CHEST: Diminished air entry bilaterally. ABDOMEN: Soft, nontender. No guarding, no rebound, obese. EXTREMITIES: No cyanosis, clubbing, 1+ edema. NEUROLOGIC: Generalized weakness. Results Result Diagram: 12/06/16 0525 12/06/16 0525 Results 24 hrs Laboratory Tests Test 12/07/16 04:00 12/07/16 08:20 12/07/16 12:16 12/07/16 17:23 Urine Amphetamines Screen Negative Urine Barbiturates Negative Urine Benzodiazepines Screen Negative Urine Bilirubin NEGATIVE Urine Cannabinoids Negative Urine Clarity CLEAR Urine Cocaine Screen Negative Urine Color LT. YELLOW Urine Glucose NEGATIVE Urine Hemoglobin NEGATIVE Urine Ketones NEGATIVE Urine Leukocyte Esterase NEGATIVE Urine Nitrite NEGATIVE Urine Opiates Screen Negative Urine Specific [place] >=1.030 H Urine Total Protein NEGATIVE Urine Urobilinogen 0.2 E.U./dL Urine pH 5.5 Bedside Glucose 217 189 263 H Test 12/07/16 20:50 Bedside Glucose 165 Medications Medications Current Medications Lorazepam (Ativan) 0.5 mg Q6H PRN IV ANXIETY Last administered on 12/07/16t 15: 03; Admin Dose 0.5 MG; Start 12/05/16 at 18:30 Ondansetron HCl (Zofran Inj) 4 mg Q6H PRN IV NAUSEA AND/OR VOMITING; Start 07/14 at 18:30 Aspirin (Aspirin) 81 mg DAILY PO Last administered on 12/07/16 08:37; Admin Dose 81 MG; Start 12/06/16 at 09:00 Nitroglycerin (Nitroglycerin (Sl Tab) 0.4 Mg) 1 tab Q5M PRN SL CHEST PAIN; Start 12/05/16 at 18:30 Acetaminophen (Tylenol Tab) 650 mg Q6H PRN PO PAIN LEVEL 1-3 OR FEVER; Start at 18:30 Acetaminophen/ Hydrocodone Bitart ([place] (5/325)) 1 tab Q6H PRN PO PAIN LEVEL 4 -6; Start 12/05/16 at 18:30 Morphine Sulfate (morphine) 2 mg Q4H PRN IV PAIN LEVEL 7-10; Start 12/05/16 at 18:30 Magnesium Hydroxide (Milk Of Mag) 30 ml DAILY PRN PO CONSTIPATION; Start at 18:30 Bisacodyl (Dulcolax) 5 mg DAILY PRN PO CONSTIPATION; Start 12/05/16 at 18:30 Famotidine (Pepcid) 20 mg Q12 PO Last administered on 12/07/16 20:53; Admin Dose 20 MG; Start 12/05/16 at 21:00 Enoxaparin Sodium 40 mg 40 mg DAILY SC Last administered on 12/07/16 09:17; Admin Dose 40 MG; Start 12/06/16 at 09:00 Ceftriaxone Sodium 50 ml @ 100 mls/hr Q24H IVPB Last administered on 14:50; Admin Dose 100 MLS/HR; Start 12/06/16 at 15:00 Azithromycin (Zithromax 500mg/ NS (Pmx)) 250 ml @ 250 mls/hr Q24H IVPB Last administered on 12/07/16 16:28; Admin Dose 250 MLS/HR; Start 12/06/16 at 16:00 Hydralazine HCl (Apresoline) 10 mg Q6H PRN IV SBP>160; Start 12/05/16 at 18:30 Carvedilol (Coreg) 25 mg BID PO Last administered on 12/07/16 20:53; Admin Dose 25 MG; Start 12/05/16 at 21:00 Digoxin (Digoxin) 0.125 mg DAILY@13 PO Last administered on 12/07/16 12:20; Admin Dose 0.125 MG; Start 12/06/16 at 13:00 Lisinopril (Zestril) 40 mg DAILY PO Last administered on 12/07/16 08:41; Admin Dose 40 MG; Start 12/06/16 at 09:00 Spironolactone (Aldactone) 25 mg DAILY PO Last administered on 12/07/16 08:37 ; Admin Dose 25 MG; Start 12/06/16 at 09:00 Insulin Glargine (Lantus) 8 unit DAILY@20 SC Last administered on 12/07/16 21: 00; Admin Dose 8 UNIT; Start 12/05/16 at 22:45 Miscellaneous Information 1 ea NOTE XX ; Start 12/05/16 at 19:00 Glucose (Glutose) 15 gm Q15M PRN PO DECREASED GLUCOSE; Start 12/05/16 at 19:00 Glucose (Glutose) 22.5 gm Q15M PRN PO DECREASED GLUCOSE; Start 12/05/16 at 19: 00 Dextrose (D50w Syringe) 25 ml Q15M PRN IV DECREASED GLUCOSE; Start 12/05/16 at 19:00 Dextrose (D50w Syringe) 50 ml Q15M PRN IV DECREASED GLUCOSE; Start 12/05/16 at 19:00 Glucagon (Glucagen) 1 mg Q15M PRN IM DECREASED GLUCOSE; Start 12/05/16 at 19:00 Glucose (Glutose) 15 gm Q15M PRN BUCCAL DECREASED GLUCOSE; Start 12/05/16 at 19 :00 Methylprednisolone Sodium Succinate (Solu-Medrol) 60 mg Q8 IV Last administered on 12/07/16 13:54; Admin Dose 60 MG; Start 12/06/16 at 14:00 ADITYA JAMA MD Dec 07, 2016 21:50
[2016-12-08 05:44] LABS: ADD SCAN DIFF NO
[2016-12-08 05:51] LABS: BASOPHILS % 0.1 % (0.0-2.0); HEMOGLOBIN 10.3 g/dl (12.0-16.0); LYMPHOCYTES # 2.1 10^3/ul (0.8-2.9); LYMPHOCYTES % 25.2 % (15.0-51.0); MEAN CORPUSCULAR HEMOGLOBIN 30.5 pg (29.0-33.0); MEAN CORPUSCULAR HGB CONC 33.2 g/dl (32.0-37.0); MEAN CORPUSCULAR VOLUME 91.7 fl (82.0-101.0); MEAN PLATELET VOLUME 9.4 fl (7.4-10.4); MONOCYTE # 0.9 10^3/ul (0.3-0.9); MONOCYTES % 10.3 % (0.0-11.0); NEUTROPHIL # 5.4 10^3/ul (1.6-7.5); PLATELET COUNT 332 10^3/UL (140-415); RED BLOOD COUNT 3.38 10^6/ul (4.20-5.40); RED CELL DISTRIBUTION WIDTH 13.9 % (11.5-14.5); WHITE BLOOD COUNT 8.4 10^3/ul (4.8-10.8)
[2016-12-08] MEDS: LORAZEPAM 2 MG INJ IV PRN ×2 (06:00→11:46)
[2016-12-08 06:02] LABS: POTASSIUM 3.8 mmol/L (3.5-5.1)
[2016-12-08 06:04] LABS: CREATININE 0.68 mg/dl (0.44-1.00)
[2016-12-08 06:05] LABS: CALCIUM 8.5 mg/dl (8.4-10.2)
[2016-12-08 06:09] LABS: INR 1.04; PARTIAL THROMBOPLASTIN TIME 22.4 Sec (25.0-35.0); PROTIME 13.6 Sec (12.2-14.2); PT RATIO 1.1
[2016-12-08 07:37] VITALS: BP 137/65; RESP 16
[2016-12-08] MEDS: ALBUTEROL/IPRATROPIUM (NEB) 3 ML AMP HHN SCH ×3 (07:55→19:59)
[2016-12-08] MEDS: ASPIRIN 81 MG TAB PO SCH (08:17)
[2016-12-08] MEDS: SPIRONOLACTONE 25 MG TAB PO SCH (08:17)
[2016-12-08] MEDS: metFORMIN 500 MG TAB PO SCH ×3 (08:17→17:42)
[2016-12-08] MEDS: FAMOTIDINE 20 MG TAB PO SCH ×2 (08:19→21:00)
[2016-12-08] MEDS: LISINOPRIL 20 MG TAB PO SCH (08:19)
[2016-12-08] MEDS: ENOXAPARIN 40 MG/0.4 ML SYG SC SCH (08:26)
[2016-12-08] MEDS: INSULIN ASPART [NOVOLOG] 3 ML PEN SC SCH ×7 (08:27→21:00)
[2016-12-08] MEDS ORDERED: METHYLPREDNISOLONE 125 MG INJ IV SCH (09:00)
[2016-12-08] MEDS: METHYLPREDNISOLONE 40 MG INJ IV SCH ×2 (09:25→21:00)
[2016-12-08] MEDS: DIGOXIN 0.125 MG TAB PO SCH (12:50)
[2016-12-08] MEDS: CEFTRIAXONE 1 GM/50 ML (PMX) 50 ML IVPB SCH (15:24)
[2016-12-08] MEDS: AZITHROMYCIN 500MG/NS (PMX) 250 ML IVPB SCH (15:57)
--- NOTE | 2016-12-08 16:24 | PN ---
Date/Time of Note Date/Time of Note DATE: 12/08/16 TIME: 16:14 Assessment/Plan VTE Prophylaxis VTE Prophylaxis Intervention: SCD's Lines/Catheters IV [facility] Type [facility] Saline Lock Urinary Cath still in place: No Assessment/Plan Assessment/Plan 1. acute chronic obstructive pulmonary disease exacerbation 2. Right lung infiltrates due to Community acquired PNA Plan : IV abx, IV steroids- will decrease to low dose Cariology following Subjective 24 Hr Interval Summary Free Text/Dictation no chest pain, SOB improving, BP stable Exam/Review of Systems Vital Signs Vitals Vital Signs Date Time Temp Pulse Resp B/P Pulse Ox O2 Delivery O2 Flow Rate FiO2 12/08/16 07:37 97.5 70 16 137/65 98 12/07/16 08:43 21 12/07/16 01:03 2.0 12/06/16 06:42 Nasal Cannula Intake and Output 12/07/16 12/07/16 12/08/16 15:00 23:00 07:00 Intake Total 3140 ml 560 ml Output Total 1000 ml Balance 3140 ml -440 ml Exam NECK: Supple. No JVD or lymphadenopathy. CARDIAC: S1, S2, no added sounds or murmurs. CHEST: Diminished air entry bilaterally. ABDOMEN: Soft, nontender. No guarding, no rebound, obese. EXTREMITIES: No cyanosis, clubbing, 1+ edema. NEUROLOGIC: Generalized weakness. Results Result Diagram: 12/08/16 0449 12/08/16 0449 Results 24 hrs Laboratory Tests Test 12/07/16 17:23 12/07/16 20:50 12/08/16 04:49 12/08/16 07:55 Bedside Glucose 263 H 165 145 Activated Partial Thromboplast Time 22.4 L Anion Gap 18 H Basophils # 0.0 Basophils % 0.1 Blood Urea Nitrogen 22 H Calcium Level 8.5 Carbon Dioxide Level 21 Chloride Level 104 Creatinine 0.68 Eosinophils # 0.0 Eosinophils % 0.0 Glucose Level 144 Hematocrit 31.0 L Hemoglobin 10.3 L INR International Normalized Ratio 1.04 Lymphocytes # 2.1 Lymphocytes % 25.2 Mean Corpuscular Hemoglobin 30.5 Mean Corpuscular Hemoglobin Concent 33.2 Mean Corpuscular Volume 91.7 Mean Platelet Volume 9.4 Monocytes # 0.9 Monocytes % 10.3 Neutrophils # 5.4 Neutrophils % 64.0 Nucleated Red Blood Cells # 0.0 Nucleated Red Blood Cells % 0.0 Platelet Count 332 Potassium Level 3.8 Prothrombin Time 13.6 Prothrombin Time Ratio 1.1 Red Blood Count 3.38 L Red Cell Distribution Width 13.9 Sodium Level 139 White Blood Count 8.4 # Test 12/08/16 11:45 Bedside Glucose 191 Medications Medications Current Medications Lorazepam (Ativan) 0.5 mg Q6H PRN IV ANXIETY Last administered on 12/08/16 11: 46; Admin Dose 0.5 MG; Start 12/05/16 at 18:30 Ondansetron HCl (Zofran Inj) 4 mg Q6H PRN IV NAUSEA AND/OR VOMITING; Start 07/14 at 18:30 Aspirin (Aspirin) 81 mg DAILY PO Last administered on 12/08/16 08:17; Admin Dose 81 MG; Start 12/06/16 at 09:00 Nitroglycerin (Nitroglycerin (Sl Tab) 0.4 Mg) 1 tab Q5M PRN SL CHEST PAIN; Start 12/05/16 at 18:30 Acetaminophen (Tylenol Tab) 650 mg Q6H PRN PO PAIN LEVEL 1-3 OR FEVER; Start at 18:30 Acetaminophen/ Hydrocodone Bitart ([place] (5/325)) 1 tab Q6H PRN PO PAIN LEVEL 4 -6; Start 12/05/16 at 18:30 Morphine Sulfate (morphine) 2 mg Q4H PRN IV PAIN LEVEL 7-10; Start 12/05/16 at 18:30 Magnesium Hydroxide (Milk Of Mag) 30 ml DAILY PRN PO CONSTIPATION; Start at 18:30 Bisacodyl (Dulcolax) 5 mg DAILY PRN PO CONSTIPATION; Start 12/05/16 at 18:30 Famotidine (Pepcid) 20 mg Q12 PO Last administered on 12/08/16 08:19; Admin Dose 20 MG; Start 12/05/16 at 21:00 Enoxaparin Sodium 40 mg 40 mg DAILY SC Last administered on 12/08/16 08:26; Admin Dose 40 MG; Start 12/06/16 at 09:00 Ceftriaxone Sodium 50 ml @ 100 mls/hr Q24H IVPB Last administered on 15:24; Admin Dose 100 MLS/HR; Start 12/06/16 at 15:00 Azithromycin (Zithromax 500mg/ NS (Pmx)) 250 ml @ 250 mls/hr Q24H IVPB Last administered on 12/08/16 15:57; Admin Dose 250 MLS/HR; Start 12/06/16 at 16:00 Hydralazine HCl (Apresoline) 10 mg Q6H PRN IV SBP>160; Start 12/05/16 at 18:30 Carvedilol (Coreg) 25 mg BID PO Last administered on 12/08/16 08:18; Admin Dose 25 MG; Start 12/05/16 at 21:00 Digoxin (Digoxin) 0.125 mg DAILY@13 PO Last administered on 12/08/16 12:50; Admin Dose 0.125 MG; Start 12/06/16 at 13:00 Lisinopril (Zestril) 40 mg DAILY PO Last administered on 12/08/16 08:19; Admin Dose 40 MG; Start 12/06/16 at 09:00 Spironolactone (Aldactone) 25 mg DAILY PO Last administered on 12/08/16 08:17 ; Admin Dose 25 MG; Start 12/06/16 at 09:00 Insulin Glargine (Lantus) 8 unit DAILY@20 SC Last administered on 12/07/16 21: 00; Admin Dose 8 UNIT; Start 12/05/16 at 22:45 Miscellaneous Information 1 ea NOTE XX ; Start 12/05/16 at 19:00 Glucose (Glutose) 15 gm Q15M PRN PO DECREASED GLUCOSE; Start 12/05/16 at 19:00 Glucose (Glutose) 22.5 gm Q15M PRN PO DECREASED GLUCOSE; Start 12/05/16 at 19: 00 Dextrose (D50w Syringe) 25 ml Q15M PRN IV DECREASED GLUCOSE; Start 12/05/16 at 19:00 Dextrose (D50w Syringe) 50 ml Q15M PRN IV DECREASED GLUCOSE; Start 12/05/16 at 19:00 Glucagon (Glucagen) 1 mg Q15M PRN IM DECREASED GLUCOSE; Start 12/05/16 at 19:00 Glucose (Glutose) 15 gm Q15M PRN BUCCAL DECREASED GLUCOSE; Start 12/05/16 at 19 :00 Methylprednisolone Sodium Succinate (Solu-Medrol) 40 mg BID IV Last administered on 12/08/16t 09:25; Admin Dose 40 MG; Start 12/08/16 at 09:00 ADITYA JAMA MD Dec 08, 2016 16:24
[2016-12-08 20:00] VITALS: BP 133/63; RESP 18
[2016-12-08] MEDS: INSULIN GLARGINE [LANtus] 3 ML PEN SC SCH (20:00)
[2016-12-09] MEDS: LORAZEPAM 2 MG INJ IV PRN (07:47)
[2016-12-09] MEDS: ALBUTEROL/IPRATROPIUM (NEB) 3 ML AMP HHN SCH (07:49)
[2016-12-09 07:55] VITALS: BP 164/77; RESP 22
[2016-12-09] MEDS: METHYLPREDNISOLONE 40 MG INJ IV SCH (08:22)
[2016-12-09] MEDS: metFORMIN 500 MG TAB PO SCH (08:22)
[2016-12-09] MEDS: ASPIRIN 81 MG TAB PO SCH (08:22)
[2016-12-09] MEDS: SPIRONOLACTONE 25 MG TAB PO SCH (08:22)
[2016-12-09] MEDS: LISINOPRIL 20 MG TAB PO SCH (08:23)
[2016-12-09] MEDS: FAMOTIDINE 20 MG TAB PO SCH (08:23)
[2016-12-09] MEDS: ENOXAPARIN 40 MG/0.4 ML SYG SC SCH (08:24)
[2016-12-09] MEDS: INSULIN ASPART [NOVOLOG] 3 ML PEN SC SCH ×2 (08:25)
--- NOTE | 2016-12-09 09:24 | PN ---
Date/Time of Note Date/Time of Note DATE: 12/09/16 TIME: 09:21 Assessment/Plan VTE Prophylaxis VTE Prophylaxis Intervention: SCD's Lines/Catheters [facility] Saline Lock Urinary Cath still in place: No Assessment/Plan Assessment/Plan 1. acute chronic obstructive pulmonary disease exacerbation 2. Right lung infiltrates due to Community acquired PNA 3. depreession 4. anxiety Plan : zoloft 25 mg po daily, Ativan 1 mg prn anxiety IV abx, IV steroids- will decrease to low dose Cariology following pt is not feeling well to go to home, she said she feel like she is dying, will have meeting/event planner and social media marketing specialist to talk to her Subjective 24 Hr Interval Summary Free Text/Dictation pt not feeling well, feeling depressed , stable Exam/Review of Systems Vital Signs Vitals Vital Signs Date Time Temp Pulse Resp B/P Pulse Ox O2 Delivery O2 Flow Rate FiO2 12/09/16 07:55 97.6 65 22 164/77 95 12/08/16 19:59 21 12/07/16 01:03 2.0 12/06/16 06:42 Nasal Cannula Intake and Output 12/08/16 12/08/16 12/09/16 15:00 23:00 07:00 Intake Total 1380 ml 800 ml Balance 1380 ml 800 ml Exam NECK: Supple. No JVD or lymphadenopathy. CARDIAC: S1, S2, no added sounds or murmurs. CHEST: Diminished air entry bilaterally. ABDOMEN: Soft, nontender. No guarding, no rebound, obese. EXTREMITIES: No cyanosis, clubbing, 1+ edema. NEUROLOGIC: Generalized weakness. Results Result Diagram: 12/08/16 0449 12/08/16 0449 Results 24 hrs Laboratory Tests Test 12/08/16 11:45 12/08/16 17:28 12/09/16 07:53 Bedside Glucose 191 185 177 Medications Medications Current Medications Lorazepam (Ativan) 0.5 mg Q6H PRN IV ANXIETY Last administered on 12/09/16 07: 47; Admin Dose 0.5 MG; Start 12/05/16 at 18:30 Ondansetron HCl (Zofran Inj) 4 mg Q6H PRN IV NAUSEA AND/OR VOMITING; Start 07/14 at 18:30 Aspirin (Aspirin) 81 mg DAILY PO Last administered on 12/09/16 08:22; Admin Dose 81 MG; Start 12/06/16 at 09:00 Nitroglycerin (Nitroglycerin (Sl Tab) 0.4 Mg) 1 tab Q5M PRN SL CHEST PAIN; Start 12/05/16 at 18:30 Acetaminophen (Tylenol Tab) 650 mg Q6H PRN PO PAIN LEVEL 1-3 OR FEVER; Start at 18:30 Acetaminophen/ Hydrocodone Bitart ([place] (5/325)) 1 tab Q6H PRN PO PAIN LEVEL 4 -6; Start 12/05/16 at 18:30 Morphine Sulfate (morphine) 2 mg Q4H PRN IV PAIN LEVEL 7-10; Start 12/05/16 at 18:30 Magnesium Hydroxide (Milk Of Mag) 30 ml DAILY PRN PO CONSTIPATION; Start at 18:30 Bisacodyl (Dulcolax) 5 mg DAILY PRN PO CONSTIPATION; Start 12/05/16 at 18:30 Famotidine (Pepcid) 20 mg Q12 PO Last administered on 12/09/16 08:23; Admin Dose 20 MG; Start 12/05/16 at 21:00 Enoxaparin Sodium 40 mg 40 mg DAILY SC Last administered on 12/09/16 08:24; Admin Dose 40 MG; Start 12/06/16 at 09:00 Ceftriaxone Sodium 50 ml @ 100 mls/hr Q24H IVPB Last administered on 15:24; Admin Dose 100 MLS/HR; Start 12/06/16 at 15:00 Azithromycin (Zithromax 500mg/ NS (Pmx)) 250 ml @ 250 mls/hr Q24H IVPB Last administered on 12/08/16 15:57; Admin Dose 250 MLS/HR; Start 12/06/16 at 16:00 Hydralazine HCl (Apresoline) 10 mg Q6H PRN IV SBP>160; Start 12/05/16 at 18:30 Carvedilol (Coreg) 25 mg BID PO Last administered on 12/09/16 08:22; Admin Dose 25 MG; Start 12/05/16 at 21:00 Digoxin (Digoxin) 0.125 mg DAILY@13 PO Last administered on 12/08/16 12:50; Admin Dose 0.125 MG; Start 12/06/16 at 13:00 Lisinopril (Zestril) 40 mg DAILY PO Last administered on 12/09/16 08:23; Admin Dose 40 MG; Start 12/06/16 at 09:00 Spironolactone (Aldactone) 25 mg DAILY PO Last administered on 12/09/16 08:22 ; Admin Dose 25 MG; Start 12/06/16 at 09:00 Insulin Glargine (Lantus) 8 unit DAILY@20 SC Last administered on 12/07/16 21: 00; Admin Dose 8 UNIT; Start 12/05/16 at 22:45 Miscellaneous Information 1 ea NOTE XX ; Start 12/05/16 at 19:00 Glucose (Glutose) 15 gm Q15M PRN PO DECREASED GLUCOSE; Start 12/05/16 at 19:00 Glucose (Glutose) 22.5 gm Q15M PRN PO DECREASED GLUCOSE; Start 12/05/16 at 19: 00 Dextrose (D50w Syringe) 25 ml Q15M PRN IV DECREASED GLUCOSE; Start 12/05/16 at 19:00 Dextrose (D50w Syringe) 50 ml Q15M PRN IV DECREASED GLUCOSE; Start 12/05/16 at 19:00 Glucagon (Glucagen) 1 mg Q15M PRN IM DECREASED GLUCOSE; Start 12/05/16 at 19:00 Glucose (Glutose) 15 gm Q15M PRN BUCCAL DECREASED GLUCOSE; Start 12/05/16 at 19 :00 Methylprednisolone Sodium Succinate (Solu-Medrol) 40 mg BID IV Last administered on 12/09/16 08:22; Admin Dose 40 MG; Start 12/08/16 at 09:00 ADITYA JAMA MD Dec 09, 2016 09:24
[2016-12-09] MEDS ORDERED: SERTRALINE 50 MG TAB PO SCH (09:30)
[2016-12-09] MEDS ORDERED: LORAZEPAM 1 MG TAB PO PRN (09:30)
--- NOTE | 2016-12-09 09:30 | PDOCDIS ---
Discharge Instructions CONDITION Patient Condition: Good HOME CARE INSTRUCTIONS: Special Diet: CARB CONTROLLED ACTIVITY: Activity Restrictions: Slowly Increase Activity Rest between Activity Avoid heavy lifting Avoid Heavy Housework FOLLOW UP/APPOINTMENTS Appointments follow up with Dr.Kalpesh Jama in 1-2 week,. Follow up with in 2-3 week. Follow up by home health on discharge ADITYA JAMA MD Dec 09, 2016 09:30
[2016-12-09] MEDS ORDERED: LORA1TAB PO (09:32)
[2016-12-09] MEDS ORDERED: Sertraline PO (09:32)
[2016-12-09] MEDS ORDERED: LEVO500T10 PO (09:32)
[2016-12-09 10:00] VITALS: BP 138/68; PULSE 68; RESP 18
--- NOTE | 2016-12-15 16:56 | DS ---
DATE OF ADMISSION: 12/05/2016 DATE OF DISCHARGE: 12/09/2016 FINAL DISCHARGE DIAGNOSES: 1. Acute chronic obstructive pulmonary disease exacerbation. 2. Right lung infiltrates consistent about community-acquired pneumonia. 3. Anxiety. CONSULTATIONS DONE DURING THIS HOSPITALIZATION: None. PROCEDURES PERFORMED DURING THIS HOSPITALIZATION: None. HOSPITAL COURSE: This is a 61-year-old female with a past medical history of depression, anxiety wh o presented with a complaint of shortness of breath. She had a history of COPD. She was noted to h ave right lower lobe infiltrate concerning for community-acquired pneumonia. She was also noted to have acute chronic obstructive pulmonary disease exacerbation. She gets admitted to the medical [facility] or where she was given IV antibiotics for pneumonia, IV Solu-Medrol for COPD exacerbation. Slowly a nd gradually she improved back to the normal baseline status. She got discharged home with a prescr iption for tapering prednisone. She was also set up for home health upon discharge. DISPOSITION: To home. DISCHARGE CONDITION: Stable and improved compared to admission. DISCHARGE ACTIVITIES: As tolerated, slowly resume to the normal baseline activity. DISCHARGE DIET: Regular diet. DISCHARGE MEDICATIONS: As per medical reconciliation. DISCHARGE FOLLOWUP AND INSTRUCTIONS 1. The patient is to follow up with Dr. Aditya Jama in 1 to 2 weeks after discharge. 2. The patient is to be followed up by home health on discharge. 3. She is [facility] with [facility] discharge. DISCHARGE MEDICATION: As per medical reconciliation. She is given a prescription for tapering dose of prednisone. Dictated By: ADITYA JAMA MD, KP/LISA Conf#: [id number] DID#: [id number]
== END 2016-12-09 10:30 | disposition home health service (06) | DRG 190 ==
LOC: E/R 11:57 → TEL 17:27 → MS2 12-06 16:05
PROVIDERS: ADMIT Internal Medicine Pulmonary Disease; ATTEND Internal Medicine Pulmonary Disease
DX: J44.1 Chronic obstructive pulmonary disease with (acute) exacerbation (principal); J18.9 Pneumonia, unspecified organism; I10 Essential (primary) hypertension; Z72.0 Tobacco use; D15.1 Benign neoplasm of heart; E78.5 Hyperlipidemia, unspecified; Z91.19 Patient's noncompliance with other medical treatment and regimen; F41.8 Other specified anxiety disorders
CPT/HCPCS: 36415; 71010; 80048; 80053; 80061; 80162; 80307; 81003; 82550; 82553; 82962; 83036; 83735; 84439; 84443; 84484; 85025; 85610; 85730; 87040; 87086; 93005; 93306; 94664; 96374; 96375; J0456; J0696; J1650; J1815; J2060; J2270; J2405; J2920; J2930; J7030